=== PATIENT | male | born 2000 | race Caucasian/White ===

== ENCOUNTER 2020-08-16 02:09 | Emergency (ER) | payer SELFPAY ==
[~2020-08-16] VITALS: Ht 182.8 cm; Wt 72.5 kg
[2020-08-16 02:15] VITALS: BP 151/86
[2020-08-16] MEDS ORDERED: TETANUS,DIPTH,PERTUSS P/F (BOOSTRIX) 0.5 ML VIAL IM ONE (02:30)
[2020-08-16] MEDS ORDERED: LIDOCAINE 1% INJ 20 ML 20 ML VIAL INJ ONE (02:30)
[2020-08-16] MEDS ORDERED: HYDROcodone/APAP 5 MG/325 MG (LORTAB) TAB ONE (03:13)
--- NOTE | 2020-08-16 03:14 | ED Upper Extremity ---
General Chief Complaint: Laceration Stated Complaint: LEFT HAND LAC Nursing Triage Note: CUT 2ND FINGER AND THUMB ON LEFT HAND ON A GLASS. Nursing Sepsis Screen: No Definite Risk Source: patient Exam Limitations: no limitations History of Present Illness Date Seen by Provider: Aug 16, 2020 Time Seen by Provider: 02:15 Initial Comments This 19-year-old young man presents to the emergency room with lacerations to his first and second finger of the left head. He tried to catch a broken glass as it was falling and cut his hand in the process. He has fairly significant lacerations that are actively bleeding on arrival. He reports having received a tetanus shot in the last 5 years. He denies any other injuries. Allergies and Home Medications Allergies Coded Allergies: No Known Drug Allergies (Unverified , 08/16/20) Patient Home Medication List Home Medication List Reviewed: Yes Review of Systems Constitutional: no symptoms reported EENTM: no symptoms reported Respiratory: no symptoms reported Cardiovascular: no symptoms reported Gastrointestinal: no symptoms reported Genitourinary: no symptoms reported Musculoskeletal: see HPI Skin: see HPI Psychiatric/Neurological: No Symptoms Reported Past Zybtyyc-Lkvdja-Gmaucd Hx Past Med/Social Hx: Reviewed Nursing Past Med/Soc Hx Patient Social History Alcohol Use: Occasionally Uses Recreational Drug Use: No Smoking Status: Current Everyday Smoker Type Used: Cigarettes Recent Foreign Travel: No Contact w/Someone Who Travel: No Recent Infectious Disease Expo: No Recent Hopitalizations: No Physical Abuse: No Sexual Abuse: No Mistreated: No Fear: No Immunizations Up To Date Tetanus Booster (TDap): Less than 5yrs PED Vaccines UTD: Yes Seasonal Allergies Seasonal Allergies: No Past Medical History Surgeries: No Respiratory: No Cardiac: No Neurological: No Genitourinary: No Gastrointestinal: No Musculoskeletal: No Endocrine: No HEENT: No Cancer: No Psychosocial: No Integumentary: No Blood Disorders: No Physical Exam Vital Signs Vital Signs - First Documented 08/16/20 02:15 Temp 36.3 Pulse 101 Resp 18 B/P (MAP) 151/86 (107) Pulse Ox 100 O2 Delivery Room Air Capillary Refill : Less Than 3 Seconds Height, Weight, BMI Height: '" Weight: lbs. oz. kg; 21.00 BMI Method: General Appearance: WD/WN, no apparent distress HEENT: normal ENT inspection Elbow/Forearm: normal inspection, no evidence of injury, normal ROM Wrist: Yes normal inspection, Yes no evidence of injury, Yes normal ROM Hand: normal ROM (Flexor and extensor tendons appear intact), Left (2 cm laceration on the volar aspect of the second finger. Skin avulsion on the finger pad of the thumb. 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 Digital block was then performed. Avulsion was scrubbed with chlorhexidine aid. Lidocaine was sprayed on the wound surface. Betadine prep was applied to the surrounding skin. Wound would not stop bleeding with tourniquet and direct pressure. The bleeding portions were then hyfrecated. This did resolve the bleeding. Glue was then applied over the avulsion to protect it. The loss of tissue and width of gape in the wound made closure with sutures a less favorable option. Wound Location: Upper Extremities Other Wound Location Left index finger Wound Length (cm): 2 Wound's Depth, Shape: flap Wound Explored: clean Irrigated w/ Saline (ccs): 60 Betadine Prep?: Yes Anesthesia: 1% Lidocaine Volume Anesthetic (ccs): 3 Suture: Prolene Suture Size: 5-0 Number of Sutures: 5 Layer Closure?: 1 Sterile Dressing Applied?: Yes Progress Wound surface was sprayed with lidocaine. Digital block was performed. Bleeding was controlled with a finger tourniquet. Wound was irrigated with saline and chlorhexidine. It was then rinsed with saline. Flap was sewn with 5-0 Prolene. Progress/Results/Core Measures Results/Orders My Orders Orders - LORI DE LEÓN MD Lidocaine 1% Inj 20 Ml (Xylocaine 1% Inj (08/16/20 02:30) Hydrocodone/Apap 5/325 Tablet (Lortab 5 (08/16/20 03:15) Hydrocodone/Apap 5/325 Tablet (Lortab 5 (08/16/20 03:13) Medications Given in ED Current Medications Medications Dose Ordered Sig/Forrest Route Start Time Stop Time Status Last Admin Dose Admin Acetaminophen/ Hydrocodone Bitart 1 tab ONCE ONCE PO 08/16/20 03:15 08/16/20 03:17 DC 08/16/20 03:17 1 TAB Lidocaine HCl 20 ml ONCE ONCE INJ 08/16/20 02:30 08/16/20 02:31 DC 08/16/20 02:34 20 ML Vital Signs/I&O 08/16/20 02:15 Temp 36.3 Pulse 101 Resp 18 B/P (MAP) 151/86 (107) Pulse Ox 100 O2 Delivery Room Air Blood Pressure Mean: 107 Departure Impression Primary Impression: Laceration of finger Qualified Codes: S61.211A - Laceration without foreign body of left index finger without damage to nail, initial encounter Additional Impression: Avulsion of skin of finger Qualified Codes: S61.209A - Unspecified open wound of unspecified finger without damage to nail, initial encounter Disposition: HOME, SELF-CARE Condition: Improved Departure-Patient Inst. Decision time for Depature: 03:10 Referrals: NO,LOCAL PHYSICIAN (PCP) Primary Care Physician Patient Instructions: Laceration Repair With Stitches (DC) Add. Discharge Instructions: Keep your wounds clean and dry except for normal showering and handwashing. You may allow soapy water to run over the wounds but do not scrub them and do not submerge until sutures are removed. Monitor wounds for signs of infection such as increasing redness, increasing swelling, puslike drainage, or fever. Return to care promptly if you notice the symptoms. Keep wounds covered when active or in dirty environments. It may be helpful to keep them covered while sleeping as well. When at rest you may leave them open to air. Avoid contact of the glue with any solvents or adhesives as this may weaken or loosen the glue. Allow the glue to slough off naturally. Do not attempt to peel it away. For pain you may use ibuprofen up to 600 mg every 6 hours as needed and/or Tylenol (acetaminophen) up to 1000 mg every 6 hours as needed. Return to the ER in 7 days to have the sutures removed. All discharge instructions reviewed with patient and/or family. Voiced understanding. Work/School Note: Work Release Form Date Seen in the Emergency Department: Aug 16, 2020 Return to Work: Aug 16, 2020 Other Restrictions Listed Below: No use of left hand until sutures removed in 1 week. Restrictions: Keep wounds covered while at work until healed. LORI DE LEÓN MD Aug 16, 2020 03:14
[2020-08-16] MEDS ORDERED: HYDROcodone/APAP 5 MG/325 MG (LORTAB) TAB PO ONE (03:15)
== END 2020-08-16 03:19 | disposition home or self-care (01) ==
LOC: ER 02:13
DX: S61.211A Laceration without foreign body of left index finger without damage to nail, initial encounter (principal); S61.102A Unspecified open wound of left thumb with damage to nail, initial encounter; F17.210 Nicotine dependence, cigarettes, uncomplicated; W25.XXXA Contact with sharp glass, initial encounter
CPT/HCPCS: 12001; 12031

== ENCOUNTER 2020-08-23 09:03 | Emergency (ER) | payer SELFPAY ==
[~2020-08-23] VITALS: Ht 182 cm; Wt 79.0 kg
[2020-08-23 09:10] VITALS: BP 0/0
== END 2020-08-23 09:14 | disposition home or self-care (01) ==
LOC: EDUNIT# 09:03 → ER 09:05
DX: S61.211D Laceration without foreign body of left index finger without damage to nail, subsequent encounter (principal); X58.XXXD Exposure to other specified factors, subsequent encounter

== ENCOUNTER 2022-03-12 13:25 | Emergency (ER) | payer SELFPAY ==
[~2022-03-12] VITALS: Ht 182.9 cm; Wt 72.6 kg
[2022-03-12 13:32] VITALS: BP 121/69
--- NOTE | 2022-03-12 15:04 | ED Upper Extremity ---
General Chief Complaint: Upper Extremity Stated Complaint: R HAND PAIN/SWELLING Nursing Triage Note: Slammed right hand into a car door approx 5 days ago. History of Present Illness Date Seen by Provider: Mar 12, 2022 Time Seen by Provider: 13:40 Initial Comments 21-year-old male presents for right hand pain and swelling over the metacarpals. He reports shutting his hand in a door approximately 5 days ago. He works at [employer] and has had difficulty with his job because of pain. He has not been taking Tylenol or ibuprofen. Onset: last week Severity: mild Pain/Injury Location: right hand Method of Injury: direct blow Modifying Factors: Improves With Rest Allergies and Home Medications Allergies Coded Allergies: No Known Drug Allergies (Unverified , 08/16/20) Patient Home Medication List Home Medication List Reviewed: Yes Review of Systems Constitutional: no symptoms reported, see HPI Musculoskeletal: see HPI, joint pain (Right hand) All Other Systems Reviewed Negative Unless Noted: Yes Past Padtdzv-Lhsnqf-Mulcjs Hx Patient Social History Tobacco Use?: Yes Tobacco type used: Cigarettes Smoking Status: Current Everyday Smoker Substance use?: No Alcohol Use?: No Immunizations Up To Date Tetanus Booster (TDap): Less than 5yrs PED Vaccines UTD: Yes Influenza Vaccine Up-to-Date: No; Not Current Seasonal Allergies Seasonal Allergies: No Past Medical History Surgeries: No Respiratory: No Cardiac: No Neurological: No Genitourinary: No Gastrointestinal: No Musculoskeletal: No Endocrine: No HEENT: No Cancer: No Psychosocial: No Integumentary: No Blood Disorders: No Family Medical History Reviewed Nursing Family Hx Physical Exam Vital Signs Vital Signs - First Documented 03/12/22 13:32 Temp 36.9 Pulse 67 Resp 14 B/P (MAP) 121/69 (86) Pulse Ox 99 Capillary Refill : Less Than 3 Seconds Height, Weight, BMI Height: '" Weight: lbs. oz. kg; 21.00 BMI Method:Estimated General Appearance: WD/WN, no apparent distress Cardiovascular: normal peripheral pulses, regular rate, rhythm Hand: Right, bone tenderness, soft tissue tenderness, swelling Neurologic/Tendon: normal sensation, normal motor functions, normal tendon functions Neurologic/Psychiatric: no motor/sensory deficits, alert, normal mood/affect, oriented x 3 Procedures/Interventions Suture Size: 5-0 Progress/Results/Core Measures Results/Orders My Orders Orders - CARMELO MONZON Hand, Right, 3 Views (03/12/22 14:28) Ibuprofen Tablet (Motrin Tablet) (03/12/22 15:15) Vital Signs/I&O 03/12/22 13:32 Temp 36.9 Pulse 67 Resp 14 B/P (MAP) 121/69 (86) Pulse Ox 99 Blood Pressure Mean: 86 Diagnostic Imaging Diagonstic Imaging: Xray Plain Films/CT/US/NM/MRI: hand Comments NAME: [facility]CE [facility] REC#: [id number] PT STATUS: REG ER : 2000 PHYSICIAN: CARMELO MONZON ADMIT DATE: 03/12/22/ER Draft Date of Exam:03/12/22 HAND, RIGHT, 3 VIEWS EXAMINATION: Right hand radiograph EXAM DATE: 03/12/2022 2:39 PM COMPARISON: None available. HISTORY: hand pain TECHNIQUE: 3 views FINDINGS: There is no acute fracture, dislocation, or destructive osseous process. The joint spaces are normal. The soft tissues are normal. IMPRESSION: 1. No acute osseous abnormality. Dictated on workstation # [id number] Dict: 03/12/22 1502 Trans: 03/12/22 1504 [facility] [id number] Interpreted by: JAYY GOMEZ DO Electronically signed by: Reviewed: Reviewed by Me Departure Impression Primary Impression: Contusion of hand Qualified Codes: S60.221A - Contusion of right hand, initial encounter Disposition: HOME, SELF-CARE Condition: Improved (ERASED) Departure-Patient Inst. Decision time for Depature: 15:10 Referrals: [facility],LOCAL PHYSICIAN (PCP) Primary Care Physician Patient Instructions: Contusion (DC) Add. Discharge Instructions: Ice and elevate right hand. Ibuprofen 600 mg and Tylenol 650 mg, alternate every 4 hours. Follow-up with primary care if symptoms or not improving or worsen, you can go to [facility]. Activity as tolerated. Return to the emergency department for new, urgent healthcare needs. All discharge instructions reviewed with patient and/or family. Voiced understanding. Work/School Note: Work Release Form Date Seen in the Emergency Department: Mar 12, 2022 Return to Work: Mar 12, 2022 Restrictions: No Restrictions CARMELO MONZON Mar 12, 2022 15:04
[2022-03-12] MEDS ORDERED: IBUPROFEN 800 MG (MOTRIN) TAB PO STA (15:15)
== END 2022-03-12 15:24 | disposition home or self-care (01) ==
LOC: EDUNIT# 13:25 → ER 13:27
DX: S60.221A Contusion of right hand, initial encounter (principal); F17.210 Nicotine dependence, cigarettes, uncomplicated; Z28.310 Unvaccinated for COVID-19; W23.0XXA Caught, crushed, jammed, or pinched between moving objects, initial encounter
CPT/HCPCS: 73130; 99285

== ENCOUNTER 2022-04-11 12:44 | Emergency (ER) | payer SELFPAY ==
--- NOTE | 2022-04-11 14:23 | ED General ---
General Chief Complaint: General Problems/Pain Stated Complaint: BACK PAIN,N/V Source of Information: Patient Exam Limitations: No Limitations History of Present Illness Date Seen by Provider: Apr 11, 2022 Time Seen by Provider: 14:21 Initial Comments Patient is a 21-year-old male who presents the ED with bilateral flank pain with radiation to bilateral lateral abdomen. Started on Saturday. Report describes the pain as more of a pulsating type pain and constant. Nausea without vomiting or diarrhea. No history of previous abdominal surgery. Denies any urinary symptoms. Subjective fever at home. Denies chest pain, shortness of breath, cough, sore throat or ear pain. Has been taking ibuprofen without much improvement. No history of previous pain in the past. Allergies and Home Medications Allergies Coded Allergies: No Known Drug Allergies (Unverified , 08/16/20) Patient Home Medication List Home Medication List Reviewed: Yes Review of Systems Review of Systems Constitutional: chills, malaise, weakness EENTM: No ear pain, No blurred vision, No double vision Respiratory: No cough, No dyspnea on exertion Cardiovascular: No chest pain Gastrointestinal: abdominal pain, nausea; No vomiting Genitourinary: No decreased output, No discharge Musculoskeletal: back pain; No joint pain Skin: No change in color, No change in hair/nails All Other Systems Reviewed Negative Unless Noted: Yes Past Wyazhho-Eezlax-Irkolm Hx Patient Social History Tobacco type used: Cigarettes Smoking Status: Current Everyday Smoker Substance use?: No Alcohol Use?: Yes Alcohol type: Beer Alcohol Frequency: Several times a month Pt feels they are or have been: No Immunizations Up To Date Tetanus Booster (TDap): Less than 5yrs PED Vaccines UTD: Yes Seasonal Allergies Seasonal Allergies: No Past Medical History Surgery/Hospitalization HX: T&A Surgeries: No Respiratory: No Cardiac: No Neurological: No Genitourinary: No Gastrointestinal: No Musculoskeletal: No Endocrine: No HEENT: No Cancer: No Psychosocial: No Integumentary: No Blood Disorders: No Physical Exam Vital Signs Vital Signs - First Documented 04/11/22 13:54 Temp 36.6 Pulse 63 Resp 16 B/P (MAP) 111/71 (84) Capillary Refill : Height, Weight, BMI Height: '" Weight: lbs. oz. kg; 21.00 BMI Method:Estimated General Appearance: No Apparent Distress, WD/WN Eyes: Bilateral Eye Normal Inspection, Bilateral Eye PERRL, Bilateral Eye EOMI, Bilateral Eye Abnormal EOM HEENT: PERRL/EOMI, TMs Normal, Normal ENT Inspection, Pharynx Normal Neck: Full Range of Motion, Normal Inspection, Non Tender, Supple Respiratory: Chest Non Tender, Lungs Clear, Normal Breath Sounds, No Accessory Muscle Use Cardiovascular: Regular Rate, Rhythm, No Edema, No Gallop, No JVD Gastrointestinal: Normal Bowel Sounds, No Organomegaly, No Pulsatile Mass, Non Tender Back: No Vertebral Tenderness, CVA Tenderness (L), CVA Tenderness (R) Neurologic/Psychiatric: Alert, Oriented x3, No Motor/Sensory Deficits, 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, 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 Skin: Normal Color, Warm/Dry Procedures/Interventions Suture Size: 5-0 Progress/Results/Core Measures Suspected Sepsis SIRS Temperature: Pulse: 63 Respiratory Rate: 16 Laboratory Tests 04/11/22 14:40: White Blood Count 7.7 Blood Pressure 111 /71 Mean: 84 Laboratory Tests 04/11/22 14:40: Creatinine 0.83, Platelet Count 179, Total Bilirubin 0.3 Results/Orders Lab Results Laboratory Tests Test 04/11/22 14:25 04/11/22 14:40 Range/Units Urine Color YELLOW Urine Clarity CLEAR Urine pH 7.0 5-9 Urine Specific [place] 1.020 1.016-1.022 Urine Protein NEGATIVE NEGATIVE Urine Glucose (UA) NEGATIVE NEGATIVE Urine Ketones NEGATIVE NEGATIVE Urine Nitrite NEGATIVE NEGATIVE Urine Bilirubin NEGATIVE NEGATIVE Urine Urobilinogen 0.2 < = 1.0 MG/DL Urine Leukocyte Esterase NEGATIVE NEGATIVE Urine RBC (Auto) NEGATIVE NEGATIVE Urine RBC RARE /HPF Urine WBC RARE /HPF Urine Squamous Epithelial Cells RARE /HPF Urine Crystals NONE /LPF Urine Bacteria NEGATIVE /HPF Urine Casts NONE /LPF Urine Mucus NEGATIVE /LPF Urine Culture Indicated NO White Blood Count 7.7 4.3-11.0 10^3/uL Red Blood Count 4.80 4.30-5.52 10^6/uL Hemoglobin 15.6 13.3-17.7 g/dL Hematocrit 46 40-54 % Mean Corpuscular Volume 95 80-99 fL Mean Corpuscular Hemoglobin 33 25-34 pg Mean Corpuscular Hemoglobin Concent 34 32-36 g/dL Red Cell Distribution Width 12.9 10.0-14.5 % Platelet Count 179 130-400 10^3/uL Mean Platelet Volume 11.0 9.0-12.2 fL Immature Granulocyte % (Auto) 0 % Neutrophils (%) (Auto) 69 42-75 % Lymphocytes (%) (Auto) 23 12-44 % Monocytes (%) (Auto) 7 0-12 % Eosinophils (%) (Auto) 1 0-10 % Basophils (%) (Auto) 1 0-10 % Neutrophils # (Auto) 5.3 1.8-7.8 10^3/uL Lymphocytes # (Auto) 1.8 1.0-4.0 10^3/uL Monocytes # (Auto) 0.5 0.0-1.0 10^3/uL Eosinophils # (Auto) 0.1 0.0-0.3 10^3/uL Basophils # (Auto) 0.0 0.0-0.1 10^3/uL Immature Granulocyte # (Auto) 0.0 0.0-0.1 10^3/uL Sodium Level 140 135-145 MMOL/L Potassium Level 4.7 3.6-5.0 MMOL/L Chloride Level 101 98-107 MMOL/L Carbon Dioxide Level 29 21-32 MMOL/L Anion Gap 10 5-14 MMOL/L Blood Urea Nitrogen 10 7-18 MG/DL Creatinine 0.83 0.60-1.30 MG/DL Estimat Glomerular Filtration Rate 127 BUN/Creatinine Ratio 12 Glucose Level 102 70-105 MG/DL Calcium Level 9.4 8.5-10.1 MG/DL Corrected Calcium 8.5-10.1 MG/DL Total Bilirubin 0.3 0.1-1.0 MG/DL Aspartate Amino Transf (AST/SGOT) 17 5-34 U/L Alanine Aminotransferase (ALT/SGPT) 19 0-55 U/L Alkaline Phosphatase 64 40-136 U/L Total Protein 7.2 6.4-8.2 GM/DL Albumin 4.7 H 3.2-4.5 GM/DL Lipase 11 8-78 U/L My Orders Orders - SHAUN HARTLEY Cbc With Automated Diff (04/11/22 14:18) Comprehensive Metabolic Panel (04/11/22 14:18) Lipase (04/11/22 14:18) Ct Abd/Pelvis Wo(Kidney Stone) (04/11/22 14:18) Hydrocodone/Apap 5/325 Tablet (Lortab 5 (04/11/22 14:30) Urinalysis (04/11/22 14:20) Medications Given in ED Current Medications Medications Dose Ordered Sig/Forrest Route Start Time Stop Time Status Last Admin Dose Admin Acetaminophen/ Hydrocodone Bitart 1 ea ONCE ONCE PO 04/11/22 14:30 04/11/22 14:31 DC 04/11/22 14:32 1 EA Vital Signs/I&O 04/11/22 13:54 Temp 36.6 Pulse 63 Resp 16 B/P (MAP) 111/71 (84) Capillary Refill : Departure Communication (PCP) Urinalysis negative for blood or infection. Lab work was otherwise unremarkable. No chest pain, cough, fever or known fever, runny nose, sore throat. CT abdomen pelvis was negative for acute abnormality. Patient was given a dose of pain medication. Due to reassuring lab work and negative imaging patient will be discharged. Anti-inflammatories for the back pain. Unclear etiology of the back pain but likely more musculoskeletal secondary to the location with a negative CT abdomen and pelvis. If any worsening symptoms return back to ED for further evaluation. Vital signs stable Impression Primary Impression: Back pain Disposition: 01 HOME, SELF-CARE Condition: Stable Departure-Patient Inst. Decision time for Depature: 15:10 Referrals: [facility] [place]IC[place] (PCP) Primary Care Physician Patient Instructions: Low Back Pain (DC) Work/School Note: Work Release Form Date Seen in the Emergency Department: Apr 11, 2022 Return to Work: Apr 13, 2022 SHAUN HARTLEY Apr 11, 2022 14:23
[2022-04-11] MEDS ORDERED: HYDROcodone/APAP 5 MG/325 MG (LORTAB) TAB PO ONE (14:30)
[2022-04-11 14:43] LABS: BASOPHILS % (AUTO) 1 % (0-10); EOSINOPHILS # (AUTO) 0.1 10^3/uL (0.0-0.3); EOSINOPHILS % (AUTO) 1 % (0-10); HEMATOCRIT 46 % (40-54); HEMOGLOBIN 15.6 g/dL (13.3-17.7); LYMPHOCYTES # (AUTO) 1.8 10^3/uL (1.0-4.0); LYMPHOCYTES % (AUTO) 23 % (12-44); MEAN CORPUSCULAR HEMOGLOBIN 33 pg (25-34); MEAN CORPUSCULAR HGB CONC 34 g/dL (32-36); MEAN CORPUSCULAR VOLUME 95 fL (80-99); MONOCYTES # (AUTO) 0.5 10^3/uL (0.0-1.0); MONOCYTES % (AUTO) 7 % (0-12); NEUTROPHILS # (AUTO) 5.3 10^3/uL (1.8-7.8); NEUTROPHILS % (AUTO) 69 % (42-75); PLATELET COUNT 179 10^3/uL (130-400); WHITE BLOOD COUNT 7.7 10^3/uL (4.3-11.0)
[2022-04-11 14:46] LABS: BILIRUBIN,URINE NEGATIVE (NEGATIVE); CLARITY,URINE CLEAR; COLOR,URINE YELLOW; GLUCOSE, URINE (UA) NEGATIVE (NEGATIVE); KETONES,URINE NEGATIVE (NEGATIVE); LEUKOCYTE ESTERASE ,URINE NEGATIVE (NEGATIVE); NITRITE,URINE NEGATIVE (NEGATIVE); PROTEIN,URINE NEGATIVE (NEGATIVE)
[2022-04-11 14:56] LABS: BACTERIA,URINE NEGATIVE /HPF; RBC,URINE RARE /HPF; SQUAMOUS EPITHELIAL CELL,UR RARE /HPF; WBC,URINE RARE /HPF
--- NOTE | 2022-04-11 14:57 | Diagnostic Imaging Report ---
PROCEDURE: CT urinary tract, rule out kidney stone. TECHNIQUE: Multiple contiguous axial images were obtained through the abdomen and pelvis without the use of intravenous contrast. Auto Exposure Controls were utilized during the CT exam to meet ALARA standards for radiation dose reduction. INDICATION: Nausea and vomiting. Body aches. COMPARISON: None. FINDINGS: Included portions of the lung bases are clear. CT ABDOMEN: Normal appendix is identified. Small bowel loops are nondistended. Multiple hypodense left renal cysts are present. Otherwise, the kidneys, adrenal glands, spleen, pancreas, and liver have an unremarkable noncontrast CT appearance. There is no loculated fluid collection, free fluid, or free air within the abdomen. No abnormal mesenteric or retroperitoneal adenopathy is seen. Osseous structures show no acute abnormalities. CT PELVIS: Urinary bladder is unopacified and minimally distended. No calculi are seen within the urinary bladder. There is no loculated fluid collection, free fluid, or free air within the pelvis. No abnormal lymph nodes are seen. Osseous structures show no acute abnormalities. IMPRESSION: 1. No acute abnormality is seen within the abdomen or pelvis. Dictated by: Dictated on workstation # [id number]
[2022-04-11 15:00] LABS: ALBUMIN 4.7 GM/DL (3.2-4.5); CHLORIDE 101 MMOL/L (98-107); POTASSIUM 4.7 MMOL/L (3.6-5.0); SODIUM 140 MMOL/L (135-145)
[2022-04-11 15:01] LABS: CALCIUM 9.4 MG/DL (8.5-10.1)
[2022-04-11 15:02] LABS: GLUCOSE 102 MG/DL (70-105)
[2022-04-11 15:03] LABS: TOTAL PROTEIN 7.2 GM/DL (6.4-8.2)
[2022-04-11 15:04] LABS: BILIRUBIN,TOTAL 0.3 MG/DL (0.1-1.0); CARBON DIOXIDE 29 MMOL/L (21-32)
[2022-04-11 15:06] LABS: ALKALINE PHOSPHATASE 64 U/L (40-136); CREATININE SERUM 0.83 MG/DL (0.60-1.30); GFR ESTIMATED 127
[2022-04-11 15:07] LABS: BUN/CREATININE RATIO 12
[2022-04-11 15:09] LABS: ALANINE AMINOTRANSFERASE 19 U/L (0-55); LIPASE 11 U/L (8-78)
[2022-04-11 15:14] VITALS: BP 111/71
== END 2022-04-11 15:16 | disposition home or self-care (01) ==
LOC: ER 12:44
DX: M54.9 Dorsalgia, unspecified (principal); F17.210 Nicotine dependence, cigarettes, uncomplicated; Z28.310 Unvaccinated for COVID-19
CPT/HCPCS: 36415; 74176; 80053; 81000; 83690; 85025; 99283

== ENCOUNTER 2022-05-13 01:46 | Emergency (ER) | payer SELFPAY ==
[~2022-05-13] VITALS: Ht 182.9 cm; Wt 72.6 kg
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
[2022-05-13] MEDS ORDERED: CEFDINIR 300 MG (OMNICEF) CAP PO ONE (04:45)
[2022-05-13] MEDS ORDERED: ONDA4TAB11 PO (05:14)
[2022-05-13] MEDS ORDERED: ACHD5005 PO (05:14)
[2022-05-13] MEDS ORDERED: CEFD300C3 PO (05:14)
[2022-05-13] MEDS ORDERED: TETANUS,DIPTH,PERTUSS P/F (BOOSTRIX) 0.5 ML VIAL IM ONE (05:15)
[2022-05-13 05:27] VITALS: BP 121/79
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
== END 2022-05-13 05:27 | disposition home or self-care (01) ==
LOC: EDUNIT# 01:46 → ER 01:49
DX: S06.0X0A Concussion without loss of consciousness, initial encounter (principal); S02.842A Fracture of lateral orbital wall, left side, initial encounter for closed fracture; S02.40DA Maxillary fracture, left side, initial encounter for closed fracture; F17.290 Nicotine dependence, other tobacco product, uncomplicated; Z88.5 Allergy status to narcotic agent; Z28.310 Unvaccinated for COVID-19; Z88.1 Allergy status to other antibiotic agents; Z23 Encounter for immunization; Y00.XXXA Assault by blunt object, initial encounter
CPT/HCPCS: 70450; 70486; 72125; 90715

== ENCOUNTER 2022-08-18 19:32 | Emergency (ER) | payer SELFPAY ==
[~2022-08-18] VITALS: Ht 182.8 cm; Wt 81.8 kg
[~2022-08-18 19:32] MED LIST: ACHD5005 PO; CEFD300C3 PO; ONDA4TAB11 PO
--- NOTE | 2022-08-18 20:01 | ED General ---
General Chief Complaint: Bite-Animal/Human/Insect Stated Complaint: DOG BITE FACE/LIP LACS Nursing Triage Note: PT STATES HE WAS BIT BY HIS NEIGHBORS DOG ON THE FACE LAW EXAMINER. HAS LACERATIONS ON HIS UPPER LIP AND NOSE. (JACKIE FERNANDES) History of Present Illness Date Seen by Provider: Aug 18, 2022 Time Seen by Provider: 19:50 Initial Comments 21 yo male here for dog bite of upper lip. Pt has complete full thickness tear of upper lip. Bleeding has stopped at this time. Pt reports that he was at his neighbors house and a dog ran up to him and attacked his face. He reports 9/10 pain. Denies loss of sensation, no teeth lost.Does not know vaccination status of dog. Pt did not get bit anywhere other than his face and did not fall or hit his head during the attack. Pt said dog released on his own. Pt TDAP booster was within the last 5 years. No other complaints. (JACKIE FERNANDES) Allergies and Home Medications Allergies Coded Allergies: amoxicillin (Verified Allergy, Unknown, 05/13/22) codeine (Verified Allergy, Unknown, 05/13/22) Patient Home Medication List Home Medication List Reviewed: Yes (JACKIE FERNANDES) Cefdinir (Cefdinir) 300 Mg Capsule, 300 MG PO BID Prescribed by: FLORI BOYCE on 05/13/22 0514 Clindamycin HCl (Clindamycin HCl) 300 Mg Capsule, 300 MG PO TID Prescribed by: LORI TORRES on 08/18/222317 Doxycycline Hyclate (Doxycycline Hyclate) 100 Mg Tablet, 100 MG PO BID Prescribed by: LORI TORRES on 08/18/222317 Hydrocodone/Acetaminophen (Hydrocodone-Acetamin 5-325 mg) 5 Mg-325 Mg Tablet, 1 TAB PO Q6H PRN for PAIN-MODERATE (5-7) Prescribed by: FLORI BOYCE on 05/13/22 0515 Hydrocodone/Acetaminophen (Hydrocodone-Acetamin 5-325 mg) 5 Mg-325 Mg Tablet, 1 TAB PO Q4H PRN for PAIN-BREAKTHROUGH Prescribed by: LORI TORRES on 08/18/222318 Ondansetron (Ondansetron Odt) 4 Mg Tab.rapdis, 4 MG PO Q6H PRN for NAUSEA/VOMITING Prescribed by: FLORI BOYCE on 05/13/22 0514 Review of Systems Review of Systems Constitutional: No dizziness, No fever, No malaise EENTM: no symptoms reported Respiratory: no symptoms reported Cardiovascular: No chest pain, No palpitations Gastrointestinal: no symptoms reported (JACKIE FERNANDES) Past Pnbmmnx-Meifqa-Thfnfp Hx Patient Social History Tobacco Use?: Yes Tobacco type used: Cigarettes Substance use?: No Alcohol Use?: Yes Alcohol Frequency: Couple times a week Pt feels they are or have been: No (JACKIE FERNANDES) Immunizations Up To Date Tetanus Booster (TDap): Less than 5yrs PED Vaccines UTD: Yes Influenza Vaccine Up-to-Date: No; Not Current (JACKIE FERNANDES) Seasonal Allergies Seasonal Allergies: No (JACKIE FERNANDES) Past Medical History Surgery/Hospitalization HX: T&A Surgeries: No Respiratory: No Cardiac: No Neurological: No Genitourinary: No Gastrointestinal: No Musculoskeletal: No Endocrine: No HEENT: No Cancer: No Psychosocial: No Integumentary: No Blood Disorders: No (JACKIE FERNANDES) Physical Exam Vital Signs Vital Signs - First Documented 08/18/22 08/18/22 19:41 23:39 Temp 37.0 Pulse 91 Resp 18 B/P (MAP) 145/82 (103) Pulse Ox 98 O2 Delivery Room Air (LORI GUERRERO MD) Vital Signs Capillary Refill : (JACKIE FERNANDES) Height, Weight, BMI Height: '" Weight: lbs. oz. kg; 24.00 BMI Method:Estimated General Appearance: No Apparent Distress, WD/WN HEENT: PERRL/EOMI, TMs Normal, Normal ENT Inspection, Pharynx Normal Neck: Full Range of Motion, Normal Inspection, Non Tender Respiratory: Chest Non Tender, Lungs Clear, Normal Breath Sounds, No Accessory Muscle Use, No Respiratory Distress Cardiovascular: Regular Rate, Rhythm, No Edema, No Gallop Skin: Other (Upper lip laceration) (JACKIE FERNANDES) Procedures/Interventions Suture Size: 5-0 (JACKIE FERNANDES) Wound Location: Face Other Wound Location Right nasal labia, extending all the way through the labia into the nostril distally Wound Length (cm): 1.5 Wound's Depth, Shape: linear, sub Q Wound Explored: clean Irrigated w/ Saline (ccs): 50 Betadine Prep?: Yes Anesthesia: 1% Lidocaine Volume Anesthetic (ccs): 1 Suture: Prolene Suture Size: 6-0 Number of Sutures: 6 Sterile Dressing Applied?: No Progress Wound was anesthetized by spraying lidocaine directly over the open wound. A small amount of lidocaine was also injected into the surrounding tissues for local anesthesia. Betadine prep was applied. The wound was approximated using 6-0 Prolene. One suture was placed under the curve of the nasal labia. The other 3 sutures were placed on the lateral edge of the nasal labia. There was good hemostasis. Wound Location: Face Other Wound Location Laceration through the right upper lip Wound Length (cm): 5 Wound's Depth, Shape: into muscle, linear, irregular, sub Q Wound Explored: clean Irrigated w/ Saline (ccs): 400 Betadine Prep?: Yes Volume Anesthetic (ccs): 6 Suture: Prolene, Vicryl Suture Size: 4-0 (Prolene), 5-0 (Prolene, and Vicryl) Number of Sutures: 11 Sterile Dressing Applied?: No Progress Wound surface was sprayed with lidocaine. Skin was cleaned with alcohol wipes and anesthesia was provided with local lidocaine injection. Mustache hair was then trimmed away from the wound so that it could be visualized and sutures could be placed. Betadine prep was applied. Wound was approximated with a combination of 4-0 Prolene, 5-0 Prolene, and 5-0 Vicryl. This was a rather complex wound repair due to the layers involved and the irregular nature of the laceration. Prolene sutures were used on the exterior in combination with 1 absorbable Vicryl suture to tack down a corner. Vicryl was used on the mucosal surface of the lip. Great care was taken to align the lip edges as precisely as possible. Much attention was paid to aligning the vermilion border. There was a pulsating vessel running through the midportion of the left side of the laceration. Deeper sutures were avoided to prevent either occluding or damaging this vessel. Patient tolerated the procedure well. There was need for rabies prophylaxis. Immunoglobulin was injected in the perioral area and cheeks bilaterally. Approximately 3 mL was injected on each side and a small quantity was injected under an abrasion on his forehead. The remaining dose was injected in the hip opposite the vaccination. (LORI GUERRERO MD) Progress/Results/Core Measures Suspected Sepsis SIRS Temperature: Pulse: 91 Respiratory Rate: 18 Blood Pressure 145 /82 Mean: 103 (JACKIE FERNANDES) Results/Orders My Orders Orders - LORI GUERRERO MD Ed Iv/Invasive Line Start (08/18/22 20:27) Clindamycin 600 Mg/50 Ml Ivpb (Cleocin P (08/18/22 20:30) Lidocaine 1% Inj 20 Ml (Xylocaine 1% Inj (08/18/22 20:30) Rabies Immune Globulin/Pf 10ml (Kedrab 1 (08/18/22 20:30) Rabies Vaccine Human Dipl Cell (Rabavert (08/18/22 20:30) Morphine Injection (Morphine Injection (08/18/22 20:36) Morphine Injection (Morphine Injection (08/18/22 21:45) Morphine Injection (Morphine Injection (08/18/22 21:46) Ketorolac Injection (Toradol Injection) (08/18/22 23:15) Doxycycline Hyclate Tablet (Vibramycin T (08/18/22 23:15) (LORI GUERRERO MD) Medications Given in ED Current Medications Medications Dose Ordered Sig/Forrest Route Start Time Stop Time Status Last Admin Dose Admin Clindamycin Phosphate/Dextrose 50 ml @ 100 mls/hr ONCE ONCE IV 08/18/22 20:30 08/18/22 20:59 DC 08/18/22 21:03 100 MLS/HR Doxycycline Hyclate 100 mg ONCE ONCE PO 08/18/22 23:15 08/18/22 23:16 DC 08/18/22 23:23 100 MG Ketorolac Tromethamine 30 mg ONCE ONCE IVP 08/18/22 23:15 08/18/22 23:16 DC 08/18/22 23:23 30 MG Lidocaine HCl 20 ml ONCE ONCE INJ 08/18/22 20:30 08/18/22 20:31 DC 08/18/22 21:03 20 ML Morphine Sulfate 5 mg ONCE ONCE IVP 08/18/22 21:45 08/18/22 21:46 DC 08/18/22 21:49 5 MG Rabies Immune Globulin 20 UNITS/KG ONCE ONCE IM 08/18/22 20:30 08/18/22 20:31 DC 12/3/22 21:52 1,500 UNITS Rabies Vaccine Human Diploid Cell 1 ml ONCE ONCE IM 08/18/22 20:30 08/18/22 20:31 DC 08/18/22 21:09 1 ML (LORI GUERRERO MD) Vital Signs/I&O 08/18/22 08/18/22 19:41 23:39 Temp 37.0 Pulse 91 78 Resp 18 16 B/P (MAP) 145/82 (103) 123/78 Pulse Ox 98 99 O2 Delivery Room Air 08/19/22 00:00 Intake Total 50 ml Balance 50 ml (LORI GUERRERO MD) Vital Signs/I&O Capillary Refill : (JACKIE FERNANDES) Blood Pressure Mean: 103 Progress Note : Time: 20:26 Progress Note Pt seen by Dr. Guerrero. Pictures taken of injury to send to Dr. Baig Discussed Rabies Vaccination and Tetanus status Placed gauze and normal saline to keep wound moist (JACKIE FERNANDES) Progress Note : Progress Note Patient was up-to-date on his tetanus immunization. The rabies vaccination was administered and immunoglobulin was injected into tissues near the wound on his face. Antibiotic therapy was initiated for prophylaxis with clindamycin 600 mg IV and oral doxycycline. Pain was managed with morphine by IV route and local injection therapy. Toradol was given prior to discharge. Patient was advised to follow-up with Dr. Baig in the clinic for further instructions and for wound monitoring. In all he received 4 sutures of 6-0 Prolene on the nose, and a combination of five 4-0 Prolene, two 5-0 Prolene, and 4 5-0 Vicryl. He received rabies immunoglobulin in his face and in his hip. (LORI GUERRERO MD) ECG Initial ECG Impression Date: Aug 18, 2022 (JACKIE FERNANDES) Departure Impression Primary Impression: Dog bite Qualified Codes: W54.0XXA - Bitten by dog, initial encounter Additional Impressions: Laceration of lip Qualified Codes: S01.511A - Laceration without foreign body of lip, initial encounter Laceration of nose Qualified Codes: S01.21XA - Laceration without foreign body of nose, initial encounter Abrasion of forehead Qualified Codes: S00.81XA - Abrasion of other part of head, initial encounter Rabies, need for prophylactic vaccination against Disposition: 01 HOME, SELF-CARE Condition: Improved Departure-Patient Inst. Decision time for Depature: 23:19 (LORI GUERRERO MD) Referrals: SUMEET BAIG MD NO,LOCAL PHYSICIAN (PCP) Primary Care Physician Patient Instructions: Laceration Repair With Stitches (DC), Animal Bites (DC), Rabies Add. Discharge Instructions: Complete your antibiotics as prescribed. Return to the hospital on the days indicated on your rabies vaccination prescription (July 22, , and ). Check in at the registration desk for these vaccinations. For pain take ibuprofen up to 600 mg every 6 hours as needed for primary pain c ontrol. Use hydrocodone as prescribed for pain not well controlled by ibuprofen. Hydrocodone may cause drowsiness so use with caution. Do not operate machinery or drive while on hydrocodone. Hydrocodone may also cause constipation, so you may wish to take a stool softener such as Colace while on hydrocodone. Starting tomorrow you may shower and allow water to run over your wounds. Do not scrub directly over the sutures. Avoid unnecessary facial movements over the next several days as your wound seals together. Also avoid food or drink that may irritate the wound in your mouth such as salty, acidic, or hot items. For the next few days avoid foods that need to be chewed or foods that have particulate matter in them. Try to stick with soft foods such as yogurt, ice cream, mashed potatoes, etc. Rinse your mouth with water after consuming anything other than water. Monitor for signs of infection such as increasing redness, increasing swelling, puslike drainage, or fever. Return to care promptly if you notice that these symptoms. Follow-up with Dr. Baig (surgeon) next week for monitoring of your wound healing and to determine when sutures should be removed. His contact information is below. Please call first thing on Saturday morning to make arrangements. All discharge instructions reviewed with patient and/or family. Voiced understanding. Scripts Hydrocodone/Acetaminophen (Hydrocodone-Acetamin 5-325 mg) 5 Mg-325 Mg Tablet 1 TAB PO Q4H PRN for PAIN-BREAKTHROUGH, #15 TAB Prov: LORI GUERRERO MD 08/18/22 Clindamycin HCl (Clindamycin HCl) 300 Mg Capsule 300 MG PO TID, #21 CAP Prov: LORI GUERRERO MD 08/18/22 Doxycycline Hyclate (Doxycycline Hyclate) 100 Mg Tablet 100 MG PO BID, #14 TAB 0 Refills Prov: LORI GUERRERO MD 08/18/22 Medical Student Attestation and Attending Note: I have personally interviewed and examined this patient along with Jackie Fernandes, MS 3. I have reviewed student documentation including history, physical, and assessments. I agree with the documentation except where otherwise noted. Exam: General: Alert, oriented, no acute distress, well developed HEENT: Normocephalic, 1.5 cm laceration through the right nasal labia, irregular 5 cm laceration starting inferior to the right nostril and extending all the way through the lip, abrasion on the forehead Heart: Regular rate and rhythm without murmur Lungs: Clear to auscultation bilaterally with normal effort Abdomen: Soft, nontender, nondistended, normal bowel sounds Neuropsych: Alert, oriented, no focal deficits Skin: Warm and dry without rashes, see above (LORI GUERRERO MD) Copy Copies To 1: SUMEET BAIG MD, ANISHA T Aug 18, 2022 20:01 LORI GUERRERO MD Aug 18, 2022 23:14
[2022-08-18] MEDS ORDERED: RABIES VACCINE HUMAN DIPL CELL 1 ML/2.5 UNITS SYR IM ONE (20:30)
[2022-08-18] MEDS ORDERED: CLINDAMYCIN 600 MG/50 ML IVPB 50 ML IV ONE (20:30)
[2022-08-18] MEDS ORDERED: RABIES IMMUNE GLOBULIN (KEDRAB) 1,500 UNITS/10 ML IM ONE (20:30)
[2022-08-18] MEDS ORDERED: LIDOCAINE 1% INJ 20 ML VIAL INJ ONE (20:30)
[2022-08-18] MEDS ORDERED: morphine INJ 10 MG/ML 1ML (SYR OR VIAL) IVP STA (20:36)
[2022-08-18] MEDS ORDERED: morphine INJ 4 MG/ML 1 ML (VIAL/SYRINGE) IVP ONE (21:45)
[2022-08-18] MEDS ORDERED: morphine INJ 10 MG/ML 1ML (SYR OR VIAL) ONE (21:46)
[2022-08-18] MEDS ORDERED: DOXYCYCLINE 100 MG (VIBRAMYCIN) TABLET PO ONE (23:15)
[2022-08-18] MEDS ORDERED: KETOROLAC 30 MG/ML VIAL IVP ONE (23:15)
[2022-08-18] MEDS ORDERED: CLIN-144 PO (23:18)
[2022-08-18] MEDS ORDERED: ACHD5005 PO (23:18)
[2022-08-18] MEDS ORDERED: DOXY100T2 PO (23:18)
[2022-08-18 23:39] VITALS: BP 123/78
== END 2022-08-18 23:39 | disposition home or self-care (01) ==
LOC: EDUNIT# 19:32 → ER 19:34
DX: S01.21XA Laceration without foreign body of nose, initial encounter (principal); S01.511A Laceration without foreign body of lip, initial encounter; F17.210 Nicotine dependence, cigarettes, uncomplicated; Z23 Encounter for immunization; Z28.310 Unvaccinated for COVID-19; W54.0XXA Bitten by dog, initial encounter; Y92.009 Unspecified place in unspecified non-institutional (private) residence as the place of occurrence of the external cause
CPT/HCPCS: 40654; 90675; 90676